=== PATIENT | female | born 1975 | race Caucasian/White ===

== ENCOUNTER 2016-11-27 10:51 | Day surgery (SDC) | payer BC ==
[2016-11-27] VITALS (10 sets, daily range): BP systolic 137–159; BP diastolic 65–83; PULSE 72–104; TEMP 97.8–99.5
[~2016-11-27] VITALS: Ht 170.3 cm; Wt 84.1 kg
[2016-11-27] MEDS ORDERED: ZESTRIL40 MG PO (11:43)
[2016-11-27] MEDS ORDERED: MULTI VITAMINS1 TAB PO (11:43)
[2016-11-27] MEDS ORDERED: PROBIOTIC FORMU1 CAP PO (11:44)
[2016-11-27] MEDS ORDERED: PERCOCET 325 MG1 TA2 PO (15:34)
[2016-11-27] MEDS ORDERED: MOTRIN 600600 MG/TAB PO (15:34)
[2016-11-27] MEDS ORDERED: COLACE 100100 MG/CAP PO (15:35)
[2016-11-28 02:28] VITALS: TEMP 98.4
[2016-11-28 05:39] VITALS: BP 146/67; PULSE 63; TEMP 98.4
[2016-11-28 09:52] VITALS: BP 142/76; PULSE 67; TEMP 98.2
== END 2016-11-28 10:15 | disposition home or self-care (01) ==
LOC: SDCO 10:51 → SURG 12:00 → SDCO 14:00
DX: K81.0 Acute cholecystitis (principal); I10 Essential (primary) hypertension
CPT/HCPCS: OP; J0330; J0360; J0694; J1100; J1170; J1885; J2270; J2405; J2550; J2704; J2710; J3010; J7120; Q9967